=== PATIENT | female | born 1965 | race Caucasian/White ===

== ENCOUNTER 2017-06-26 08:00 | Outpatient (CLI) | payer OTHER | END 2017-06-26 08:01 | disposition home or self-care (01) | LOC: BICMAMMO 08:00 | PROVIDERS: ATTEND Obstetrics & Gynecology | DX: Z12.31 Encounter for screening mammogram for malignant neoplasm of breast (principal) | CPT/HCPCS: 77063; 77067; G0202 ==

== ENCOUNTER 2018-07-08 07:52 | Outpatient (CLI) | payer OTHER ==
--- NOTE | 2018-07-08 12:01 | MRI ---
MRI BRAIN WITH AND WITHOUT CONTRAST: Date: 07/08/18 Multiplanar, multisequential imaging of brain obtained. INDICATION: Memory loss. Dizziness. FINDINGS: Ventricles have normal and position. There is a focal white matter hyperintensity seen in the subcort ical white matter of the right frontal lobe measuring approximately 7.0 mm. There are one or two othe r tiny white matter hyperintensities which appear insignificant. There is no mass or edema. No restricted diffusion. No abnormal enhancement. Paranasal sinuses and ma stoids are clear. Cerebral arteries show expected flow-voids. IMPRESSION: A 7.0 mm asymmetric hyperintensity in the subcortical white matter of the right frontal lobe. Statist ically, this most likely represents a focus of chronic ischemic change. However, given its asymmetry, follow-up is recommended. A low grade nonenhancing neoplasm is not excluded. Suggest follow-up MRI b rain with and without contrast in 6 months to reevaluate. CODE T. POS: HANY
== END 2018-07-08 07:53 | disposition home or self-care (01) ==
LOC: BICMRI 07:52
PROVIDERS: ATTEND Physician Assistant
DX: R42 Dizziness and giddiness (principal); R41.3 Other amnesia
CPT/HCPCS: 70553

== ENCOUNTER 2018-09-28 13:48 | Outpatient (CLI) | payer OTHER ==
--- NOTE | 2018-09-30 11:12 | MMO ---
Bilateral MAMMO Bilat Screen [facility]. CLINICAL HISTORY: Patient is 53 years old and is seen for screening. The patient has the following family history of breast cancer: paternal aunt, at age 42. The patient has no personal history of cancer. The patient has a history of right Excisional Biopsy more than 10 years ago - benign. VIEWS: The views performed were: bilateral craniocaudal with tomosynthesis and bilateral mediolateral oblique with tomosynthesis. FILMS COMPARED: The present examination has been compared to prior imaging studies performed at [facility] on 06/26/2017, and at [facility] on 05/13/2016, 11/18/2016 and 11/19/2016. MAMMOGRAM FINDINGS: The breasts are heterogeneously dense, which could obscure a lesion on mammography. There are stable benign appearing calcifications seen in both breasts. There are no suspicious masses, suspicious calcifications, or new areas of architectural distortion. IMPRESSION: THERE IS NO MAMMOGRAPHIC EVIDENCE OF MALIGNANCY. A ROUTINE FOLLOW-UP MAMMOGRAM IN 1 YEAR IS RECOMMENDED. THE RESULTS OF THIS EXAM WERE SENT TO THE PATIENT. ACR BI-RADS Category 2 - Benign finding MAMMOGRAPHY NOTE: 1. A negative mammogram report should not delay a biopsy if a dominant of clinically suspicious mass is present. 2. Approximately 10% to 15% of breast cancers are not detected by mammography. 3. Adenosis and dense breasts may obscure an underlying neoplasm.
== END 2018-09-28 13:49 | disposition home or self-care (01) ==
LOC: BICMAMMO 13:48
PROVIDERS: ATTEND Family Medicine
DX: Z12.31 Encounter for screening mammogram for malignant neoplasm of breast (principal)
CPT/HCPCS: 77063; 77067

== ENCOUNTER 2018-09-28 14:01 | Outpatient (CLI) | payer OTHER ==
--- NOTE | 2018-09-28 15:09 | ULT ---
FBILATERAL CAROTID DUPLEX ULTRASOUND: HISTORY: Memory impairment TECHNIQUE: Grayscale, color-flow and spectral Doppler ultrasound imaging of the extracranial carotid artery syst ems was performed bilaterally. FINDINGS: Mild intimal thickening is seen. The peak systolic velocity in the right ICA measures 83 cm/s . The peak systolic velocity in the left ICA measures 77 cm/s. Flow in both vertebral arteries remains antegrade. IMPRESSION: No hemodynamically significant stenosis of either visualized ICA.
== END 2018-09-28 14:02 | disposition home or self-care (01) ==
LOC: BICULT 14:01
PROVIDERS: ATTEND Family Medicine
DX: R41.3 Other amnesia (principal)
CPT/HCPCS: 93880

== ENCOUNTER 2018-10-06 07:58 | Outpatient (CLI) | payer OTHER ==
[2018-10-06 08:53] LABS: Estimated GFR-MDRD - POC Greater than 90
--- NOTE | 2018-10-06 10:05 | MRI ---
MRI Brain W WO Con: 10/06/2018 12:00 AM CLINICAL HISTORY: Memory impairment. COMPARISON: 07/08/2018 FINDINGS: Extra axial spaces: Slight prominence of extra-axial CSF likely related to parenchymal volume loss. Hemorrhage: None. Ventricular system: Mild compensatory dilatation. Basal cisterns: Normal. Cerebral parenchyma: Multifocal white matter signal abnormalities are present, and has slightly progr essed. The previously mentioned anterior right periventricular signal abnormality now demonstrates in terval central signal reduction favoring interval cavitation related to deep white matter lacunar inf arction. There is no associated enhancement. Midline shift: None. Cerebellum: Normal. Brainstem: Normal. Paranasal sinuses:Clear IMPRESSION:Findings most consistent with interval progression of microvascular ischemic disease. This is advanced for patient's age. Recommend neurology consultation.
== END 2018-10-06 07:59 | disposition home or self-care (01) ==
LOC: TBSIIMAG 07:58
PROVIDERS: ATTEND Family Medicine
DX: R41.3 Other amnesia (principal); R93.0 Abnormal findings on diagnostic imaging of skull and head, not elsewhere classified
CPT/HCPCS: 70553; 82565

== ENCOUNTER 2019-04-16 10:16 | Outpatient (CLI) | payer OTHER ==
--- NOTE | 2019-04-16 11:57 | BD ---
BONE DENSITOMETRY USING DEXA: Date: 04/16/19 HISTORY: Postmenopausal screening for osteoporosis. FINDINGS: Lumbar Spine: BMD (g/cm2) L1 0.877 T-Score: -1.0 Z-Score: 0.0 L2 0.927 T-Score: -0.9 Z-Score: 0.2 L3 0.597 T-Score: -1.2 Z-Score: 0.0 L4 0.970 T-Score: -0.8 Z-Score: 0.4 L1-L4 0.935 T-Score: -1.0 Z-Score: 0.1 Femoral Neck: 0.635 T-Score: -1.9 Z-Score: -0.8 Total Femur: 0.836 T-Score: -0.9 Z-Score: -0.1 The 10 year fracture risk for a major osteoporotic fracture is 6.7% and for a hip fracture is 0.8%. IMPRESSION: Osteopenia. POS: [facility]
== END 2019-04-16 10:17 | disposition home or self-care (01) ==
LOC: BICMAMMO 10:16
PROVIDERS: ATTEND Family Medicine
DX: Z13.820 Encounter for screening for osteoporosis (principal); N95.1 Menopausal and female climacteric states; M85.89 Other specified disorders of bone density and structure, multiple sites
CPT/HCPCS: 77080